=== PATIENT | male | born 1950 | race Caucasian/White ===

== ENCOUNTER 2019-07-31 13:20 | Emergency (ER) | payer OTHER ==
[~2019-07-31] VITALS: Ht 177.8 cm; Wt 73.0 kg
[~2019-07-31 13:20] MED LIST: APID SUBQ; ENAL20TA6 PO; GLU500 PO; LANTUS SC
--- NOTE | 2019-07-31 13:29 | NUR ---
Pascual ambrose in [facility] - 07/31/19 at 1343 by CAMRYN TAKEN TO BED 5 BY AMBULANCE
--- NOTE | 2019-07-31 13:29 | NUR ---
Patient taken to bed 5 by wheelchair
--- NOTE | 2019-07-31 13:30 | NUR ---
PT BIB DAUGHTER C/O DIZZINESS, FATIGUES, BLURRY VISION UPON AWAKENING THIS AM. STATES HE IS TAKING ALL OF HIS MEDICATIONS ACCORDINGLY. PATIENT STATES PAIN OF 0/10 AT THIS TIME; VSS; PATIENT POSITIONED FOR COMFORT; HOB ELEVATED; BEDRAILS UP X1; BED DOWN. BERNARDA MILLS MADE AWARE OF PT STATUS. Addendum: 07/31/19 at 1443 by [facility] PT'S DAUGHTER REPORT STIFFNESS ON NECK AND WEAKNESS ON LEGS BILATERAL THIS MORNING.
[2019-07-31 13:34] VITALS: BP 117/61
--- NOTE | 2019-07-31 13:47 | NUR ---
TRIAGE COMPLETED BY SCOTT ADAMES
--- NOTE | 2019-07-31 14:19 | NUR ---
VSS AT THIS TIME. PT [id number]
[2019-07-31 14:26] LABS: BASOPHILS % (AUTO) 0.5 % (0.0-2.0); EOSINOPHILS % (AUTO) 0.3 % (0.0-4.0); HEMATOCRIT 40.9 % (36-52); HEMOGLOBIN 13.4 g/dL (12.0-18.0); LYMPHOCYTES # (AUTO) 1.5 K/uL (2.0-11.5); LYMPHOCYTES % (AUTO) 21.3 % (20.5-51.1); MEAN CORPUSCULAR HEMOGLOBIN 26 pg (27-31); MEAN CORPUSCULAR HGB CONC 33 g/dL (33-37); MEAN CORPUSCULAR VOLUME 80.1 fL (80-94); MONOCYTES # (AUTO) 0.4 K/uL (0.8-1.0); MONOCYTES % (AUTO) 5.8 % (1.7-9.3); NEUTROPHILS # (AUTO) 4.9 K/uL (1.8-7.7); NEUTROPHILS % (AUTO) 72.1 % (42.2-75.2); PLATELET COUNT (AUTO) 256 K/uL (140-450); RED BLOOD CELL COUNT(AUTO) 5.11 MIL/uL (4.20-6.10); RED CELL DISTRIBUTION WIDTH 16.3 % (11.6-13.7); WHITE BLOOD COUNT (AUTO) 6.8 K/uL (4.8-10.8)
[2019-07-31 14:38] LABS: ANION GAP 15.9 (8-16); CARBON DIOXIDE 25.8 mmol/L (21-32); CHLORIDE 101 mmol/L (98-107); CREATININE 1.5 mg/dL (0.7-1.3); GLUCOSE 100 mg/dL (74-106); POTASSIUM 3.7 mmol/L (3.5-5.1); SODIUM SERUM 139 mmol/L (136-145); UREA NITROGEN, BLOOD 25 mg/dL (7-18)
--- NOTE | 2019-07-31 15:34 | NUR ---
PT IS RESTING IN BED WITH EYES CLOSED. VSS. PT IS ON MONITOR AND CONTINUE TO MONITOR PT'S VITALS.
--- NOTE | 2019-07-31 16:27 | NUR ---
PT'S BLOOD GLUCOSE IS 59MG/DL AT THIS TIME. DR. CLAY NOTIFIED. JUICE AND FOOD PROVIDED TO PATIENT. PT IS EATING IN BED NOW.
--- NOTE | 2019-07-31 17:00 | NUR ---
CALLED [employer]ETARY DEPT FOR FOOD DELIVERY. NOTIFIED PT.
--- NOTE | 2019-07-31 17:23 | NUR ---
PT IS EATING FOOD IN BED. DAUGHTER AND ARE AT BEDSIDE.
--- NOTE | 2019-07-31 18:20 | NUR ---
PT AMBULATES TO BATHROOM WITH STEADY GAIT.
--- NOTE | 2019-07-31 18:24 | NUR ---
DR. CLAY IS EVALUATING PT AT BEDSIDE.
[2019-07-31 18:59] VITALS: BP 132/64
--- NOTE | 2019-07-31 18:59 | NUR ---
Patient discharged with v/s stable. Written and verbal after care instructions given and explained. Patient verbalized understanding. Ambulatory with steady gait. All questions addressed prior to discharge. Advised to follow up with PMD.
== END 2019-07-31 18:59 | disposition home or self-care (01) ==
LOC: MED 13:20
DX: R42 Dizziness and giddiness (principal); R53.1 Weakness; J45.909 Unspecified asthma, uncomplicated; E11.9 Type 2 diabetes mellitus without complications; I10 Essential (primary) hypertension; E78.5 Hyperlipidemia, unspecified; Z98.890 Other specified postprocedural states; Z79.4 Long term (current) use of insulin; Z79.899 Other long term (current) drug therapy; Z88.2 Allergy status to sulfonamides; Z88.8 Allergy status to other drugs, medicaments and biological substances
CPT/HCPCS: 36415; 70450; 80048; 82948; 84484; 85025; 93005; 99284

== ENCOUNTER 2022-08-04 15:09 | Emergency (ER) | payer OTHER ==
[~2022-08-04] VITALS: Ht 167.6 cm; Wt 75.3 kg
[~2022-08-04 15:09] MED LIST changes: +ENAL20TA40 PO; -ENAL20TA6 PO
--- NOTE | 2022-08-04 15:12 | NUR ---
PT BIBA TO BED 05.
[2022-08-04 15:13] VITALS: BP 105/65
--- NOTE | 2022-08-04 15:15 | NUR ---
72 y/o male biba from home, c/o new onset of dizziness and gen weakness that started today while sitting on couch. denies syncope, fall or pain. pt states he has had same sensation in the past 3 other times and was dx with vertigo. a&ox4, occitan speaking, ambulates with steady gait. denies cough, fever, chills, sob or cp at this time. pmh: asthma, dm2, htn, vertigo, hld allergy: sulfa, allantoin, aminacrine
[2022-08-04] MEDS ORDERED: NACL 0.9% 1,000 ML IV ONE (15:20)
[2022-08-04 15:34] LABS: BASOPHILS % (AUTO) 0.6 % (0.0-2.0); EOSINOPHILS % (AUTO) 0.7 % (0.0-4.0); HEMATOCRIT 42.6 % (36-52); HEMOGLOBIN 13.8 g/dL (12.0-18.0); LYMPHOCYTES # (AUTO) 1.5 K/uL (2.0-11.5); LYMPHOCYTES % (AUTO) 23.5 % (20.5-51.1); MEAN CORPUSCULAR HEMOGLOBIN 25 pg (27-31); MEAN CORPUSCULAR HGB CONC 33 g/dL (33-37); MEAN CORPUSCULAR VOLUME 76.9 fL (80-94); MONOCYTES # (AUTO) 0.4 K/uL (0.8-1.0); MONOCYTES % (AUTO) 6.9 % (1.7-9.3); NEUTROPHILS # (AUTO) 4.3 K/uL (1.8-7.7); NEUTROPHILS % (AUTO) 68.3 % (42.2-75.2); PLATELET COUNT (AUTO) 271 K/uL (140-450); RED BLOOD CELL COUNT(AUTO) 5.54 MIL/uL (4.20-6.10); RED CELL DISTRIBUTION WIDTH 16.6 % (11.6-13.7); WHITE BLOOD COUNT (AUTO) 6.3 K/uL (4.8-10.8)
--- NOTE | 2022-08-04 15:45 | NUR ---
X-Ray at bedside.
[2022-08-04 15:57] LABS: ALBUMIN 3.3 g/dL (3.4-5.0); ANION GAP 13.9 (8-16); CARBON DIOXIDE 27.2 mmol/L (21-32); CHLORIDE 104 mmol/L (98-107); CREATININE 1.4 mg/dL (0.6-1.3); GLUCOSE 113 mg/dL (74-106); POTASSIUM 4.1 mmol/L (3.5-5.1); SODIUM SERUM 141 mmol/L (136-145); TOTAL BILIRUBIN 0.5 mg/dL (0.0-1.0); UREA NITROGEN, BLOOD 26 mg/dL (7-18)
[2022-08-04 16:28] LABS: ASPARTATE AMINOTRANSFERASE 28 U/L (15-37)
[2022-08-04 17:07] VITALS: BP 137/72
--- NOTE | 2022-08-04 17:07 | NUR ---
Patient discharged with v/s stable. Written and verbal after care instructions given. Patient verbalized understanding. Ambulatory with steady gait. All questions addressed prior to discharge. Advised to follow up with PMD.
--- NOTE | 2022-08-04 17:41 | NUR ---
The patient's care was reviewed and supervised by Laura Olea, RN, RN.
== END 2022-08-04 17:07 | disposition home or self-care (01) ==
LOC: MED 15:09
DX: E86.0 Dehydration (principal); R42 Dizziness and giddiness; R53.1 Weakness; J45.909 Unspecified asthma, uncomplicated; E11.9 Type 2 diabetes mellitus without complications; Z79.899 Other long term (current) drug therapy; Z79.4 Long term (current) use of insulin; Z88.2 Allergy status to sulfonamides; Z88.8 Allergy status to other drugs, medicaments and biological substances
CPT/HCPCS: 36415; 71045; 80053; 84484; 85025; 93005; 99285; Q0092

== ENCOUNTER 2023-05-30 13:34 | Emergency (ER) | payer OTHER ==
[~2023-05-30] VITALS: Ht 160 cm; Wt 76.2 kg
[2023-05-30 14:17] VITALS: BP 152/74; PULSE 72; RESP 18; TEMP 98.5; O2SAT 96
[2023-05-30 16:37] VITALS: BP 150/72; PULSE 70; RESP 20; TEMP 97.7; O2SAT 96
--- NOTE | 2023-05-30 16:37 | NUR ---
Patient discharged with v/s stable. Written and verbal after care instructions given and explained. Patient alert, oriented and verbalized understanding of instructions. Ambulatory with to home. All questions addressed prior to discharge. ID band removed. Patient advised to follow up with PMD.Opportunity to ask questions provided and answered.
== END 2023-05-30 16:37 | disposition home or self-care (01) ==
LOC: MED 13:34
DX: S20.211A Contusion of right front wall of thorax, initial encounter (principal); S09.90XA Unspecified injury of head, initial encounter; I10 Essential (primary) hypertension; E11.9 Type 2 diabetes mellitus without complications; J45.909 Unspecified asthma, uncomplicated; Z79.4 Long term (current) use of insulin; Z88.8 Allergy status to other drugs, medicaments and biological substances; Z88.2 Allergy status to sulfonamides; Z79.899 Other long term (current) drug therapy; W18.30XA Fall on same level, unspecified, initial encounter; Y93.89 Activity, other specified; Y92.89 Other specified places as the place of occurrence of the external cause; Y99.8 Other external cause status
CPT/HCPCS: 70450; 71101; 72125; 99284